=== PATIENT | female | born 1985 | race Two or more races ===

== ENCOUNTER 2019-03-14 11:36 | Emergency (ER) | payer OTHER, BC ==
[~2019-03-14] VITALS: Ht 160 cm; Wt 59.0 kg
[2019-03-14 11:44] VITALS: BP 104/66
== END 2019-03-14 12:18 | disposition home or self-care (01) ==
LOC: ER 11:36
DX: S39.82XA Other specified injuries of lower back, initial encounter (principal); V49.49XA Driver injured in collision with other motor vehicles in traffic accident, initial encounter; Y93.89 Activity, other specified; Y92.488 Other paved roadways as the place of occurrence of the external cause; Y99.8 Other external cause status